=== PATIENT | male | born 1965 | race African-American/Black ===

== ENCOUNTER 2020-12-14 11:39 | Emergency (ER) | payer MEDICAID ==
[~2020-12-14] VITALS: Ht 167.6 cm; Wt 63.5 kg
[2020-12-14 12:40] LABS: BASOPHILS % 0.3 % (0.0-2.0); HEMATOCRIT. 27.4 % (42.0-52.0); HEMOGLOBIN. 8.9 g/dL (14.0-18.0); LYMPHOCYTES % 11.5 % (20.0-50.0); MEAN CORPUSCULAR HEMOGLOBIN 29.5 pg (28.0-32.0); MEAN CORPUSCULAR VOLUME 90.8 fL (80.0-94.0); MEAN PLATELET VOLUME 9.4 fl (7.4-10.4); MONOCYTES % 8.9 % (2.0-8.0); NEUTROPHILS % 67.3 % (40.0-76.0); PLATELET 271 x1000/uL (130-400); RED BLOOD CELL COUNT 3.01 mill/uL (4.7-6.1); RED CELL DISTRIBUTION WIDTH 18.7 % (11.6-14.6)
[2020-12-14 12:43] LABS: CHLORIDE 98 mEq/L (98-107)
[2020-12-14 14:15] VITALS: BP 130/78
== END 2020-12-14 14:43 | disposition home or self-care (01) ==
LOC: EDSEX 11:39 → ER 12:11 → SUPCPDRO 18:12
DX: R20.2 Paresthesia of skin (principal); E11.22 Type 2 diabetes mellitus with diabetic chronic kidney disease; N18.6 End stage renal disease; I49.9 Cardiac arrhythmia, unspecified; Z98.890 Other specified postprocedural states
CPT/HCPCS: 36415; 80053; 82962; 85025; 93005; 99284